=== PATIENT | male | born 1950 | race Caucasian/White ===

== ENCOUNTER 2016-10-16 05:36 | Day surgery (SDC) | payer MEDICARE, OTHER ==
[~2016-10-16 05:36] MED LIST: ACETAMINOPHEN325 M2 PO; ACETAMINOPHEN325 MG PO; ADVIL200 M3 PO; ANTIVERT12.5 MG PO; ASPIR 8181 M1 PO; ATIVAN0.5 MG PO; ATIVAN1 M1 PO; BACITRACIN OINT28 G1 TOP; BACITRACIN OINTM1 GM; BACTRIM DS TAB1 EAC2 PO; BENADRYL25 MG PO; BISACODYL5 MG PO; BUDEPRION SR150 MG PO; BUPROPION HCL150 M PO; CLINDAMYCIN HC300 M2 PO; COLACE-T100 MG; COLACE-T100 MG PO; COLACE100 M1 PO; COZAAR100 M1 PO; CULTURELLE1 CAP PO; CYCLOBENZAPRINE5 M1 PO; DOCUSATE SODIU100 M2 PO; ELTA TP; FLUOXETINE HCL20 M3 PO; FOLIC ACID1 MG PO; FUROSEMIDE20 MG PO; GABAPENTIN300 M1 PO; GLUCAGON1 MG/KIT IJ; H PO; HUMULIN-R100 UNITS/ SC; HYDROCHLOROTHIA50 M1 PO; HYDROCODON-ACE1 EAC7 PO; HYDROXYZINE HCL25 MG PO; KEFLEX500 M4 PO; KLONOPIN1 MG PO; LASIX40 M1 PO; LOPRESSOR25 MG/TA2 PO; LORAZEPAM0.5 M1 PO; LOSARTAN POTAS100 M1 PO; LOVENOX40 MG/0.4 SQ; LUTEIN6 M2 PO; LYRICA25 MG PO; LYRICA50 MG PO; MAXAPAP325 MG PO; MECLIZINE HCL25 M3 PO; MECLIZINE HCL25 M4 PO; MILK OF MA400 MG/5 M PO; MILK OF MAGNESIA PO; MIRALAX17 G2 PO; MOBIC15 M2 PO; MOBIC7.5 M2 PO; MONOJECT PREFIL10 M1 IJ; NORCO 5-325 TA1 EACH PO; NORVASC10 MG PO; NORVASC5 M1 PO; NORVASC5 M2 PO; OCUVITE EYE +1 EACH PO; PERCOCET 5-3251 EACH PO; PERCOCET 5MG/AP1 TA3 PO; PRENATAL 19 TA1 EAC1 PO; PRENATAL1 EACH PO; PROTONIX20 M1 PO; PROTONIX20 M2 PO; PROTONIX40 M1 PO; PROZAC10 MG PO; PROZAC20 M1 PO; PROZAC40 M1 PO; PROZAC40 MG PO; QUETIAPINE FUMA25 MG PO; SEROQUEL100 M2 PO; SERTRALINE HCL100 M5 PO; SILVADENE20 G1 TP; TERAZOSIN5 MG PO; THERA-TABS M C1 EACH PO; TRAMADOL HCL50 MG PO; TYLENOL650 MG PO; VANCOMYCIN IV; VITAMIN C PO; VITAMIN C500 M3 PO; VITAMIN C500 M6 PO; WELLBUTRIN XL150 MG PO; ZANAFLEX4 M PO; ZINC SULFATE220 MG PO; ZOFRAN ODT4 MG/UDTAB PO; ZOFRAN4 M2 PO; [UNRECOGNIZED DRUG - CODE] IJ; [UNRECOGNIZED DRUG - OTHER] TP; [UNRECOGNIZED DRUG - OTHER] TP
[2016-10-16 07:49] LABS: BASO % 0.7 % (0-2); BASO ABSOLUTE COUNT 0.1 tho/cmm (0.0-0.2); EOS % 1.5 % (0-7); EOSINOPHIL ABSOLUTE COUNT 0.2 tho/cmm (0.0-0.7); HCT-HEMATOCRIT 39.4 % (36.0-53.5); HGB-HEMOGLOBIN 13.5 gm/dl (13.5-17.0); IMMATURE GRANULOCYTES ABSOLUTE 0.04 tho/cmm (0-0.03); IMMATURE GRANULOCYTES PERCENT 0.3 % (0-0.3); LYMPH % 9.9 % (20-45); LYMPH ABSOLUTE COUNT 1.2 tho/cmm (0.8-4.5); MCH (MEAN CORPUSCULAR HGB) 29.9 pg (28.0-32.0); MCHC MEAN CORPUSCULAR HGB CONC 34.3 % (32.0-36.0); MCV (MEAN CELL VOLUME) 87.2 fl (82.0-96.0); MEAN PLATELET VOLUME 9.9 cmc (9.4-12.4); MONO % 5.3 % (0-12); MONOCYTE ABSOLUTE COUNT 0.6 tho/cmm (0.0-1.2); NEUTROPHIL ABSOLUTE COUNT 9.7 tho/cmm (1.6-8.0); NEUTROPHIL-AUTOMATED 9.7 tho/cmm (1.6-8.0); NEUTROPHILS % 82.3 % (40-80); PLATELET COUNT 351 tho/cmm (150-450); RED BLOOD COUNT 4.52 mil/cmm (4.40-5.70); RED CELL DISTRIBUTION WIDTH 13.2 % (12.4-16.4); WHITE BLOOD COUNT 11.8 tho/cmm (4.0-10.0)
[2016-10-16 08:00] LABS: ANION GAP 14 mmol/L (0-20); BLOOD UREA NITROGEN 21 mg/dl (6-24); CALCIUM 9.1 mg/dl (8.5-10.5); CARBON DIOXIDE-VENOUS 25 mmol/L (22-32); CHLORIDE 107 mmol/l (96-110); CREATININE 0.89 mg/dl (0.60-1.30); GLUCOSE 98 mg/dL (70-110); POTASSIUM 3.7 mmol/L (3.7-5.1); SODIUM 142 mmol/L (135-145); eGFR VALUE FOR BLACK >90 mL/Min
[2016-11-02] MEDS ORDERED: PRENATAL TABLE1 EAC3 PO (17:38)
[2016-11-09] MEDS ORDERED: [UNRECOGNIZED DRUG - REMARK] (16:55)
== END 2016-10-17 11:25 ==
LOC: SHSA 05:36 → SRG 05:36 → SHSA 05:37 → SRG 07:00 → ORW 09:32 → BURN 09:56 → SRG 10-17 11:25
PROVIDERS: Anesthesiology
PROC: 0HRJXK3 Replacement of Left Upper Leg Skin with Nonautologous Tissue Substitute, Full Thickness, External Approach (ICD-10-PCS; principal; 2016-10-16)
PROC: 0HR8XK3 Replacement of Buttock Skin with Nonautologous Tissue Substitute, Full Thickness, External Approach (ICD-10-PCS; 2016-10-16)
DX: L98.419 Non-pressure chronic ulcer of buttock with unspecified severity (principal); L97.929 Non-pressure chronic ulcer of unspecified part of left lower leg with unspecified severity; L90.5 Scar conditions and fibrosis of skin; I11.0 Hypertensive heart disease with heart failure; I50.30 Unspecified diastolic (congestive) heart failure; F41.9 Anxiety disorder, unspecified; D64.9 Anemia, unspecified; K21.9 Gastro-esophageal reflux disease without esophagitis; Z90.79 Acquired absence of other genital organ(s); Z79.899 Other long term (current) drug therapy; Z88.1 Allergy status to other antibiotic agents; Z88.8 Allergy status to other drugs, medicaments and biological substances; Z98.890 Other specified postprocedural states
CPT/HCPCS: J0171; J3260; J3370; J7030; Q4100

== ENCOUNTER 2016-10-23 05:12 | Day surgery (SDC) | payer MEDICARE, OTHER ==
[~2016-10-23] VITALS: Ht 172.7 cm; Wt 86.2 kg
[2016-11-02] MEDS ORDERED: PRENATAL TABLE1 EAC3 PO (17:38)
[2016-11-09] MEDS ORDERED: [UNRECOGNIZED DRUG - REMARK] (16:55)
== END 2016-10-24 10:20 ==
LOC: BURN 05:12 → SHSB 05:12 → SRG 05:12 → ORW 08:52 → BURN 10:03 → SRG 10-24 10:20
PROC: 0HR8XK3 Replacement of Buttock Skin with Nonautologous Tissue Substitute, Full Thickness, External Approach (ICD-10-PCS; principal; 2016-10-23)
DX: L90.5 Scar conditions and fibrosis of skin (principal); I11.0 Hypertensive heart disease with heart failure; I50.9 Heart failure, unspecified; M19.90 Unspecified osteoarthritis, unspecified site; G62.9 Polyneuropathy, unspecified; F41.9 Anxiety disorder, unspecified; F32.9 Major depressive disorder, single episode, unspecified; N40.0 Benign prostatic hyperplasia without lower urinary tract symptoms; Z79.1 Long term (current) use of non-steroidal anti-inflammatories (NSAID); Z79.899 Other long term (current) drug therapy; Z88.1 Allergy status to other antibiotic agents; Z88.8 Allergy status to other drugs, medicaments and biological substances; Z86.14 Personal history of Methicillin resistant Staphylococcus aureus infection; Z98.890 Other specified postprocedural states
CPT/HCPCS: 15002; C5271; J0171; J3260; J3370; Q4100

== ENCOUNTER 2016-10-30 04:52 | Day surgery (SDC) | payer MEDICARE, OTHER ==
[~2016-10-30] VITALS: Ht 172.7 cm; Wt 87.2 kg
[2016-10-30 06:27] LABS: BASO % 0.5 % (0-2); BASO ABSOLUTE COUNT 0.1 tho/cmm (0.0-0.2); EOS % 1.7 % (0-7); EOSINOPHIL ABSOLUTE COUNT 0.2 tho/cmm (0.0-0.7); HCT-HEMATOCRIT 39.5 % (36.0-53.5); HGB-HEMOGLOBIN 12.7 gm/dl (13.5-17.0); LYMPH % 10.7 % (20-45); LYMPH ABSOLUTE COUNT 1.4 tho/cmm (0.8-4.5); MCH (MEAN CORPUSCULAR HGB) 28.5 pg (28.0-32.0); MCHC MEAN CORPUSCULAR HGB CONC 32.2 % (32.0-36.0); MCV (MEAN CELL VOLUME) 88.8 fl (82.0-96.0); MEAN PLATELET VOLUME 10.3 cmc (9.4-12.4); MONO % 8.2 % (0-12); MONOCYTE ABSOLUTE COUNT 1.1 tho/cmm (0.0-1.2); NEUTROPHIL ABSOLUTE COUNT 10.4 tho/cmm (1.6-8.0); NEUTROPHIL-AUTOMATED 10.4 tho/cmm (1.6-8.0); NEUTROPHILS % 78.9 % (40-80); PLATELET COUNT 399 tho/cmm (150-450); RED BLOOD COUNT 4.45 mil/cmm (4.40-5.70); RED CELL DISTRIBUTION WIDTH 13.1 % (12.4-16.4); WHITE BLOOD COUNT 13.2 tho/cmm (4.0-10.0)
[2016-11-02] MEDS ORDERED: PRENATAL TABLE1 EAC3 PO (17:38)
[2016-11-09] MEDS ORDERED: [UNRECOGNIZED DRUG - REMARK] (16:55)
== END 2016-10-31 05:20 ==
LOC: SRG 04:52 → BURN 04:52 → SHSB 04:53 → SRG 05:30 → BURN 08:20 → SRG 10-31 05:20
PROVIDERS: Anesthesiology
PROC: 0HR8XK3 Replacement of Buttock Skin with Nonautologous Tissue Substitute, Full Thickness, External Approach (ICD-10-PCS; principal; 2016-10-30)
PROC: 0HRLXK3 Replacement of Left Lower Leg Skin with Nonautologous Tissue Substitute, Full Thickness, External Approach (ICD-10-PCS; 2016-10-30)
DX: L90.5 Scar conditions and fibrosis of skin (principal); I11.0 Hypertensive heart disease with heart failure; I50.9 Heart failure, unspecified; E11.9 Type 2 diabetes mellitus without complications; F41.9 Anxiety disorder, unspecified; F32.9 Major depressive disorder, single episode, unspecified; K21.9 Gastro-esophageal reflux disease without esophagitis; Z88.1 Allergy status to other antibiotic agents; Z88.8 Allergy status to other drugs, medicaments and biological substances; Z90.79 Acquired absence of other genital organ(s); Z98.890 Other specified postprocedural states
CPT/HCPCS: 15002; C5271; J0171; J3260; J3370; Q4100

== ENCOUNTER 2016-11-06 04:44 | Day surgery (SDC) | payer MEDICARE, OTHER ==
[~2016-11-06] VITALS: Ht 172.7 cm; Wt 87.4 kg
[~2016-11-06 04:44] MED LIST changes: +PRENATAL TABLE1 EAC3 PO
[2016-11-09] MEDS ORDERED: [UNRECOGNIZED DRUG - REMARK] (16:55)
== END 2016-11-07 05:05 ==
LOC: SRG 04:44 → BURN 04:44 → SHSA 04:44 → SRG 05:30 → ORW 07:20 → BURN 08:11 → SRG 11-07 05:05 → BURN 11-07 05:05
PROC: 0HR8XK3 Replacement of Buttock Skin with Nonautologous Tissue Substitute, Full Thickness, External Approach (ICD-10-PCS; principal; 2016-11-06)
PROC: 0HRNXK3 Replacement of Left Foot Skin with Nonautologous Tissue Substitute, Full Thickness, External Approach (ICD-10-PCS; 2016-11-06)
DX: L90.5 Scar conditions and fibrosis of skin (principal); I11.0 Hypertensive heart disease with heart failure; I50.9 Heart failure, unspecified; F41.9 Anxiety disorder, unspecified; F32.9 Major depressive disorder, single episode, unspecified; K21.9 Gastro-esophageal reflux disease without esophagitis; N40.0 Benign prostatic hyperplasia without lower urinary tract symptoms; Z79.1 Long term (current) use of non-steroidal anti-inflammatories (NSAID); Z79.899 Other long term (current) drug therapy; Z88.1 Allergy status to other antibiotic agents; Z88.8 Allergy status to other drugs, medicaments and biological substances; Z86.14 Personal history of Methicillin resistant Staphylococcus aureus infection; Z90.79 Acquired absence of other genital organ(s); Z98.890 Other specified postprocedural states
CPT/HCPCS: J0171; J3010; J3260; J3370; J7030; Q4100

== ENCOUNTER 2016-11-13 04:54 | Day surgery (SDC) | payer MEDICARE, OTHER ==
[~2016-11-13] VITALS: Ht 172.7 cm; Wt 86.4 kg
[~2016-11-13 04:54] MED LIST changes: +[UNRECOGNIZED DRUG - REMARK]
[2016-11-14] MEDS ORDERED: NORCO 5-325 TA1 EACH PO (12:56)
--- NOTE | 2016-11-14 16:57 | NUR ---
PT ORDER FOR SNAP VAC IS OBTAINED AND APPLICATION IS DONE AFTER REMOVING SOME OF THE TAPE AND SPONGE TO OBTAIN A SEAL. UPON REMOVING OF THE TAPE THERE IS A WOUND TO THE RT BUTTOCK THAT WAS DONE IN THE OR WHEN THEY REMOVED THE TAPE. THIS IS DRAINAING AND NOT ALOWING FOR A SEAL TO THE WOUND VAC WITH KEVIN SEAL AND TAPE A GOOD SEAL IS OBTAINED AND SNAP VAC IS APPLIED TO THE AREA. THERBOND IS APPLIED TO THE OPEN AREA AT THIS TIME. PT TO FOLLOW UP IN ONE WEEK FOR GRAFTING.
== END 2016-11-14 13:35 ==
LOC: SRG 04:54 → SHSB 04:54 → SRG 05:30 → BURN 08:40 → SRG 11-14 13:35
PROC: 0HBLXZX Excision of Left Lower Leg Skin, External Approach, Diagnostic (ICD-10-PCS; principal; 2016-11-13)
PROC: 0HB8XZX Excision of Buttock Skin, External Approach, Diagnostic (ICD-10-PCS; 2016-11-13)
PROC: 0HR8XK3 Replacement of Buttock Skin with Nonautologous Tissue Substitute, Full Thickness, External Approach (ICD-10-PCS; 2016-11-13)
PROC: 0HRLXK3 Replacement of Left Lower Leg Skin with Nonautologous Tissue Substitute, Full Thickness, External Approach (ICD-10-PCS; 2016-11-13)
DX: S81.802A Unspecified open wound, left lower leg, initial encounter (principal); S31.819A Unspecified open wound of right buttock, initial encounter; L98.419 Non-pressure chronic ulcer of buttock with unspecified severity; I96 Gangrene, not elsewhere classified; L57.0 Actinic keratosis; I11.0 Hypertensive heart disease with heart failure; I50.9 Heart failure, unspecified; F41.9 Anxiety disorder, unspecified; F32.9 Major depressive disorder, single episode, unspecified; K21.9 Gastro-esophageal reflux disease without esophagitis; N40.0 Benign prostatic hyperplasia without lower urinary tract symptoms; Z79.1 Long term (current) use of non-steroidal anti-inflammatories (NSAID); Z79.899 Other long term (current) drug therapy; Z88.1 Allergy status to other antibiotic agents; Z88.8 Allergy status to other drugs, medicaments and biological substances; Z86.14 Personal history of Methicillin resistant Staphylococcus aureus infection; Z90.79 Acquired absence of other genital organ(s); Z98.890 Other specified postprocedural states
CPT/HCPCS: 27040; 27613; C5271; C5272; J0171; J3260; J3370; J7030; Q4100